=== PATIENT | male | born 1935 | race Caucasian/White ===

== ENCOUNTER 2016-04-19 09:28 | Outpatient (CLI) | payer MEDICARE ==
[2016-04-19 12:18] LABS: Bilirubin Negative (Negative); Blood, Urine Trace (Negative); Glucose, Urine (Dipstick) Negative (Negative); Ketone, Urine Negative (Negative); Nitrite Negative (Negative); Protein, Urine (Dipstick) Negative (Neg-Trace); Urobilinogen 0.2 mg/dL (0.2-1.0)
[2016-04-19 12:30] LABS: #Basophils 0.1 thou/uL (0.0-0.2); #Eosinphils 0.2 thou/uL (0.0-0.7); #Lymphocytes 1.8 thou/uL (1.20-3.40); #Monocytes 0.4 thou/uL (0.11-0.59); #Neutrophils 3.4 thou/uL (1.40-6.50); %Basophils 1.3 % (0.0-1.0); %Eosinophils 2.7 % (0.0-10.0); %Lymphocytes 31.2 % (21.0-51.0); %Monocytes 6.6 % (0.0-10.0); Hematocrit 41.9 % (42.0-52.0); Mean Platelet Volume 5.8 fL (7.4-10.4); Red Blood Cell (RBC) Count 4.51 mill/uL (4.70-6.10); White Blood Cell (WBC) Count 5.7 thou/uL (4.8-10.8)
[2016-04-19 12:42] LABS: ALT (SGPT) 12 U/L (0-55); AST (SGOT) 18 U/L (5-34); Alkaline Phosphatase 51 U/L (40-150); Anion Gap 14 mmol/L (10-20); BUN (Urea Nitrogen) 12 mg/dL (8.4-25.7); Bilirubin, Total 0.5 mg/dL (0.2-1.2); Calc. Creatinine Clearance 0 mL/min (70-130); Calcium 8.8 mg/dL (7.8-10.44); Carbon Dioxide 22 mmol/L (23-31); Chloride 109 mmol/L (98-107); Estimated GFR-MDRD 65; Globulin 2.7 g/dL (2.4-3.5); LDL Cholesterol, Calculated 197 mg/dL; Protein, Total 6.8 g/dL (5.8-8.1)
[2016-04-19 12:43] LABS: Bacteria/HPF Rare-Few HPF (None Seen); RBC/HPF 0-3 HPF (0-3); Squamous Epithelial 0-3 HPF (0-3); WBC/HPF 0-3 HPF (0-3)
== END 2016-04-19 09:29 | disposition home or self-care (01) ==
LOC: NAVSJIPCSP 09:28
PROVIDERS: ATTEND Internal Medicine
DX: I10 Essential (primary) hypertension (principal); Z79.899 Other long term (current) drug therapy; Z85.46 Personal history of malignant neoplasm of prostate
CPT/HCPCS: 36415; 80053; 80061; 81003; 81015; 84153; 84443; 85025

== ENCOUNTER 2016-04-19 09:36 | Outpatient (CLI) | payer MEDICARE ==
--- NOTE | 2016-04-20 07:46 | RAD ---
PA AND LATERAL VIEWS OF THE CHEST: HISTORY: Exposure to asbestos. FINDINGS: Comparison is made to the exam of 04/05/15. The heart size is normal. The lungs are expanded without focal areas of consolidation, pneumothorax , or pleural effusions. There are degenerative changes in the spine. No calcified pleural plaques are seen. IMPRESSION: No radiographic evidence of acute cardiopulmonary process. POS: [facility]
== END 2016-04-19 09:37 | disposition home or self-care (01) ==
LOC: NAV RAD 09:36
PROVIDERS: ATTEND Internal Medicine
DX: Z09 Encounter for follow-up examination after completed treatment for conditions other than malignant neoplasm (principal); Z87.09 Personal history of other diseases of the respiratory system
CPT/HCPCS: 71020

== ENCOUNTER 2017-02-20 14:15 | Outpatient (CLI) | payer MEDICARE ==
--- NOTE | 2017-02-20 15:49 | RAD ---
TWO VIEW CHEST: History: Asbestosis. Comparison: 04-19-16 FINDINGS: Lung mercado are clear. Interstitial markings appear within normal range. There is no evidence of pleu ral thickening or pleural plaque. Heart and mediastinum are unremarkable. Osseous structures are unre markable. There is mild degenerative change in the thoracic spine. IMPRESSION: Unremarkable chest. POS: [facility]
== END 2017-02-20 14:16 | disposition home or self-care (01) ==
LOC: NAV RAD 14:15
PROVIDERS: ATTEND Internal Medicine
DX: Z87.09 Personal history of other diseases of the respiratory system (principal); F02.81 Dementia in other diseases classified elsewhere, unspecified severity, with behavioral disturbance
CPT/HCPCS: 71020

== ENCOUNTER 2017-06-18 09:21 | Emergency (ER) | payer MEDICARE ==
[2017-06-18 10:05] LABS: #Basophils 0.1 thou/uL (0.0-0.2); #Eosinphils 0.1 thou/uL (0.0-0.7); #Lymphocytes 1.6 thou/uL (1.20-3.40); #Monocytes 0.7 thou/uL (0.11-0.59); #Neutrophils 9.1 thou/uL (1.40-6.50); %Basophils 0.6 % (0.0-1.0); %Eosinophils 0.9 % (0.0-10.0); %Lymphocytes 14.1 % (21.0-51.0); %Neutrophils 78.4 % (42.0-75.0); Hemoglobin 13.5 g/dL (14.0-18.0); Mean Corpuscular HGB CONC 34.1 g/dL (32.0-36.0); Mean Corpuscular Hemoglobin 29.8 pg (27.0-31.0); Mean Corpuscular Volume 87.3 fl (80.0-94.0); Platelet Count 152 thou/uL (130-400); RBC Distribution Width 11.8 % (11.5-14.5); Red Blood Cell (RBC) Count 4.54 mill/uL (4.70-6.10); White Blood Cell (WBC) Count 11.7 thou/uL (4.8-10.8)
[2017-06-18 10:07] LABS: Bilirubin Small (Negative); Blood, Urine Small (Negative); Clarity Clear (Clear); Glucose, Urine (Dipstick) Negative (Negative); Leukocyte Negative (Negative); Nitrite Negative (Negative); Protein, Urine (Dipstick) 30 mg/dL (Neg-Trace); pH, Urine 6.5 (5.0-9.0)
[2017-06-18 10:12] LABS: ALT (SGPT) 11 U/L (8-55); AST (SGOT) 16 U/L (5-34); Albumin 3.7 g/dL (3.4-4.8); Alkaline Phosphatase 52 U/L (40-150); Anion Gap 15 mmol/L (10-20); BUN (Urea Nitrogen) 14 mg/dL (8.4-25.7); Bilirubin, Total 1.4 mg/dL (0.2-1.2); CK (CPK) 172 U/L (30-200); CKMB 1.6 ng/mL (0-6.6); Calc. Creatinine Clearance 0 mL/min (70-130); Calcium 8.8 mg/dL (7.8-10.44); Carbon Dioxide 21 mmol/L (23-31); Chloride 106 mmol/L (98-107); Estimated GFR-MDRD 76; Globulin 2.4 g/dL (2.4-3.5); Glucose 117 mg/dL (83-110); Potassium 4.1 mmol/L (3.5-5.1); Protein, Total 6.1 g/dL (5.8-8.1); Sodium 138 mmol/L (136-145); Troponin I Less than 0.010 ng/mL (< 0.028)
[2017-06-18 10:13] LABS: Bacteria/HPF Rare-Few HPF (None Seen); Squamous Epithelial 0-3 HPF (0-3)
[2017-06-18] MEDS ORDERED: cefTRIAXone\\ROCEPHIN 2 GM VIAL ONE (10:41)
[2017-06-18] MEDS ORDERED: Sodium Chloride 0.9% 100 ML ONE (10:42)
--- NOTE | 2017-06-18 10:52 | RAD ---
RADIOGRAPH CHEST 1 VIEW: Date: 06/18/17 Time: 1001 HOURS HISTORY: 82-year-old male with cough for 10 days, and chills. COMPARISON: 02/20/17. FINDINGS: There is a new finding of a small to moderate size region of air space opacity silhouetting the infer ior aspect of the right cardiac border, and the medial half of the right hemidiaphragm. The rest of t he visualized lung mercado are clear. No cardiomegaly. No pneumothorax. No effacement of lateral costo phrenic angles. IMPRESSION: Right middle lobe air space density, which could either be pneumonia or atelectasis. CHANDAN [] POS: [facility]
== END 2017-06-18 11:30 | disposition home or self-care (01) ==
LOC: NAV ERS 09:21
DX: J18.9 Pneumonia, unspecified organism (principal); R55 Syncope and collapse; K03.81 Cracked tooth; I10 Essential (primary) hypertension; K21.9 Gastro-esophageal reflux disease without esophagitis; E78.00 Pure hypercholesterolemia, unspecified; Z79.899 Other long term (current) drug therapy
CPT/HCPCS: 71045; 80053; 81003; 81015; 82550; 82553; 84484; 85025; 87086; 93005; 96365; J0696; J7050; J7620

== ENCOUNTER 2017-07-03 17:14 | Outpatient (CLI) | payer MEDICARE ==
--- NOTE | 2017-07-03 18:17 | RAD ---
TWO VIEWS CHEST 07/03/17 HISTORY: Aspiration pneumonia. COMPARISON: 02/20/17, 06/18/17. FINDINGS: Normal cardiac silhouette. Pulmonary vessels and pulmonary hilum are normal. costophrenic angles are clear. Hyperinflation with chronic changes. No masses or consolidation. No pneumothorax or osseous ab normalities. IMPRESSION: Hyperinflation. No acute cardiopulmonary process. POS: [facility]
== END 2017-07-03 17:15 | disposition home or self-care (01) ==
LOC: NAV RAD 17:14
PROVIDERS: ATTEND Internal Medicine
DX: J69.0 Pneumonitis due to inhalation of food and vomit (principal); R91.8 Other nonspecific abnormal finding of lung field
CPT/HCPCS: 71046

== ENCOUNTER 2018-04-24 14:30 | Outpatient (CLI) | payer MEDICARE ==
--- NOTE | 2018-04-24 15:05 | RAD ---
TWO VIEWS CHEST: Date: 04-24-18 Provided Clinical History: Asbestos exposure. FINDINGS: Comparison 07-03-17 Cardiac and mediastinal silhouette is within normal limits. Lungs appear clear. No pleural fluid or p neumothorax apparent. IMPRESSION: No evidence for an acute cardiopulmonary process. POS: [facility]
== END 2018-04-24 14:31 | disposition home or self-care (01) ==
LOC: NAV RAD 14:30
PROVIDERS: ATTEND Internal Medicine
DX: Z77.090 Contact with and (suspected) exposure to asbestos (principal)
CPT/HCPCS: 71046

== ENCOUNTER 2019-05-04 14:40 | Emergency (ER) | payer MEDICARE ==
[2019-05-04 15:11] LABS: #Eosinphils 0.1 thou/uL (0.0-0.7); #Lymphocytes 0.8 thou/uL (1.20-3.40); #Monocytes 0.4 thou/uL (0.11-0.59); #Neutrophils 5.9 thou/uL (1.40-6.50); %Basophils 0.6 % (0.0-1.0); %Eosinophils 0.9 % (0.0-10.0); %Lymphocytes 10.9 % (21.0-51.0); %Monocytes 5.7 % (0.0-10.0); Mean Corpuscular HGB CONC 33.5 g/dL (32.0-36.0); Mean Corpuscular Hemoglobin 30.6 pg (27.0-31.0); Mean Corpuscular Volume 91.2 fL (78.0-98.0); Mean Platelet Volume 6.7 fL (7.4-10.4); Platelet Count 141 thou/uL (130-400); RBC Distribution Width 11.8 % (11.5-14.5); Red Blood Cell (RBC) Count 4.26 mill/uL (4.70-6.10); White Blood Cell (WBC) Count 7.2 thou/uL (4.8-10.8)
[2019-05-04] MEDS ORDERED: Ibuprofen 800 MG TAB ONE (15:12)
[2019-05-04 15:33] LABS: ALT (SGPT) 19 U/L (8-55); AST (SGOT) 22 U/L (5-34); Albumin 4.1 g/dL (3.4-4.8); Alkaline Phosphatase 50 U/L (40-110); Anion Gap 16 mmol/L (10-20); BUN (Urea Nitrogen) 24 mg/dL (8.4-25.7); Bilirubin, Total 0.9 mg/dL (0.2-1.2); CK (CPK) 188 U/L (30-200); Calc. Creatinine Clearance 0 mL/min (70-130); Calcium 8.8 mg/dL (7.8-10.44); Carbon Dioxide 20 mmol/L (23-31); Chloride 105 mmol/L (98-107); Estimated GFR-MDRD 67; Globulin 2.6 g/dL (2.4-3.5); Glucose 125 mg/dL (83-110); Potassium 4.1 mmol/L (3.5-5.1); Protein, Total 6.7 g/dL (5.8-8.1); Sodium 137 mmol/L (136-145)
--- NOTE | 2019-05-04 15:44 | RAD ---
EXAM: Chest one view: HISTORY: Cough, syncopal episode, fever COMPARISON: 04/24/2018 FINDINGS: Heart size: Within normal limits. Lungs: Clear of acute process. No evidence for confluent pneumonia, pleural effusion, acute edema, or pneumothorax, or other signifi cant acute process. IMPRESSION: No significant acute intrathoracic disease. Stable exam
[2019-05-04 16:07] LABS: Bacteria/HPF None Seen HPF (None Seen); Bilirubin Negative (Negative); Blood, Urine Trace (Negative); Clarity Clear (Clear); Glucose, Urine (Dipstick) Negative (Negative); Leukocyte Negative (Negative); Nitrite Negative (Negative); Protein, Urine (Dipstick) Negative (Neg-Trace); RBC/HPF 0-3 HPF (0-3); Squamous Epithelial 0-3 HPF (0-3); WBC/HPF None Seen HPF (0-3)
[2019-05-04] MEDS ORDERED: Oseltamivir 75 MG CAP ONE (16:22)
== END 2019-05-04 16:48 | disposition home or self-care (01) ==
LOC: NAV ERS 14:40
DX: J11.1 Influenza due to unidentified influenza virus with other respiratory manifestations (principal); R55 Syncope and collapse; I10 Essential (primary) hypertension; K21.9 Gastro-esophageal reflux disease without esophagitis; E78.00 Pure hypercholesterolemia, unspecified; Z79.899 Other long term (current) drug therapy
CPT/HCPCS: 36415; 71045; 80053; 81003; 81015; 82550; 83605; 84484; 85025; 87040; 87804; 93005